=== PATIENT | female | born 1980 | race Caucasian/White ===

== ENCOUNTER 2018-05-16 07:04 | Inpatient (IN) | payer BC ==
[2018-05-16] MEDS ORDERED: Ondansetron 4 MG Tab.DIS PO PRN (07:26)
[2018-05-16] MEDS ORDERED: Sodium Chloride 0.9% 10 ML Syringe FLUSH PRN (07:26)
[2018-05-16] MEDS ORDERED: Ondansetron 4 MG/2 ML SDV IVPUSH PRN ×2 (07:26→14:53)
[2018-05-16] MEDS ORDERED: Acetaminophen 325 MG Tab PO PRN (07:26)
[2018-05-16] MEDS ORDERED: fentaNYL 100 MCG/2 ML SDV IVPUSH PRN (07:26)
[2018-05-16] MEDS ORDERED: Oxytocin/Lactated Ringers 10 UNIT/1,000 ML BAG IV SCH ×2 (07:30→08:00)
--- NOTE | 2018-05-16 08:13 | PCM.LDHP ---
L&D History of Present Illness - General Date of Service: 05/16/18 Admit Problem/Dx: Patient Status Order with Admit Dx/Problem 05/16/18 07:33 Patient Status [ADT] Routine Admission Diagnosis/Problem Admission Diagnosis/Problem Source of Information: Patient History Limitations: Reports: No Limitations - History of Present Illness Introduction:: 37 yo female at 40 weeks gestation with EDC 05/16/18. We have been following her closely due to some elevated bp readings and intermittent protein in the urine and history of severe preeclampsia. Her home bp readings have been 130's over 80's lately. BPP was done on 05/06/18 and scored 8/8 with EFW 7 lb 3 oz. NST on 05/10/18 was reactive. She is blood type A positive, rubella non immune, RPR NR, HBsAg neg, HIV neg. Diabetes screen negative, GBS negative. She has had some GERD and has been taking pantoprazole. She had her Tdap shot on 03/16/18. - Related Data Allergies/Adverse Reactions: Allergies Allergy/AdvReac Type Severity Reaction Status Date / Time No Known Allergies Allergy Verified 05/16/18 08:08 Home Medications: Home Meds Pantoprazole [ProTONIX] 40 mg PO DAILY 05/16/18 [History] Vits #93/Iron Fum/FA [ Formula Tablet] 1 tab PO DAILY 05/16/18 [History] Past Medical History HEENT History: Reports: None Cardiovascular History: Reports: Hypertension Respiratory History: Reports: None Gastrointestinal History: Reports: None Genitourinary History: Reports: None : 3 Para: 2 Other OB/BYN History: Severe preeclampsia with last , induced due to preeclampsia with first also Musculoskeletal History: Reports: None Neurological History: Reports: None Psychiatric History: Reports: None Endocrine/Metabolic History: Reports: None Hematologic History: Reports: None Social & Family History - Family History Family Medical History: Noncontributory - Tobacco Use Smoking Status *Q: Former Smoker Tobacco Use Within Last Twelve Months: Cigarettes (5-7 cigs a day prior to ) Used Tobacco, but Quit: Yes - Alcohol Use Alcohol Use History: No - Recreational Drug Use Recreational Drug Use: No Drug Use in Last 12 Months: No - Living Situation & Occupation Living situation: Reports: H&P Review of Systems - Review of Systems: Review Of Systems: See Below General: Reports: No Symptoms HEENT: Reports: No Symptoms Pulmonary: Reports: No Symptoms Cardiovascular: Reports: Edema Gastrointestinal: Reports: Nausea Genitourinary: Reports: No Symptoms Musculoskeletal: Reports: Back Pain Skin: Reports: No Symptoms Psychiatric: Reports: No Symptoms Neurological: Reports: No Symptoms Hematologic/Lymphatic: Reports: No Symptoms Immunologic: Reports: No Symptoms L&D Exam - Exam Exam: See Below - OB Specific Contraction Frequency (min): occasional contraction noted on monitor Movement: Active Heart Tones: Present Heart Tones per Min: 130 Heart Rate (FHR) Variability: Moderate (6-25 bmp) Presentation: Vertex Estimated Weight: 7 lb 3 oz - Charles Score Charles Score Cervix Position: Posterior Charles Score Consistency: Soft Charles Score Effacement: 31-50% Charles Score Dilation: 3-4 cm Charles Score 's Station: -3 Charles Score Total: 5 - Exam General: Alert, Oriented HEENT: Conjunctiva Clear, Mucosa Moist & [place] Neck: Supple, Trachea Midline Lungs: Normal Respiratory Effort Cardiovascular: Regular Rate, Regular Rhythm GI/Abdominal Exam: Soft Rectal Exam: Deferred Genitourinary: Normal external exam Back Exam: Normal Inspection Extremities: Normal Inspection, No Pedal Edema Skin: Warm, Dry, Intact Psychiatric: Alert, Normal Affect, Normal Mood - Problem List (1) Elevated BP without diagnosis of hypertension SNOMED Code(s): 202445487 ICD Code: R03.0 - ELEVATED BLOOD-PRESSURE READING, W/O DIAGNOSIS OF HTN Status: Acute Current Visit: Yes (2) History of severe pre-eclampsia SNOMED Code(s): 816494767 ICD Code: Z87.59 - PERSONAL HISTORY OF COMP OF PREG, CHLDBRTH AND THE PUERP Status: Acute Current Visit: Yes (3) Term SNOMED Code(s): 85092381 ICD Code: Z34.80 - ENCOUNTER FOR SUPRVSN OF NORMAL , UNSP TRIMESTER Status: Acute Current Visit: Yes Problem List Initiated/Reviewed/Updated: Yes Orders Last 24hrs: Active Orders 24 hr Category Date Time Status Patient Status [ADT] Routine ADT 05/16/18 07:33 Ordered Activity as Tolerated [RC] PFP Care 05/16/18 07:33 Ordered Communication Order [RC] ASDIRECTED Care 05/16/18 07:33 Ordered Heart Tones [RC] ASDIRECTED Care 05/16/18 07:33 Ordered Notify Provider [RC] PFP Care 05/16/18 07:33 Ordered Notify Provider [RC] PRN Care 05/16/18 07:33 Ordered Peripheral IV Care [RC] . DIRECTED Care 05/16/18 07:33 Ordered Vital Signs [RC] PER UNIT ROUTINE Care 05/16/18 07:33 Ordered Regular Diet [DIET] Diet 05/16/18 Lunch Ordered CBC W/O DIFF,HEMOGRAM [HEME] Stat Lab 05/16/18 07:26 Ordered RAPID PLASMA REAGIN,RPR [CHEM] Stat Lab 05/16/18 07:26 Ordered TYPE AND SCREEN [BBK] Stat Lab 05/16/18 07:26 Ordered UA W/O MICROSCOPIC [URIN] Stat Lab 05/16/18 07:26 Ordered Acetaminophen [Tylenol] Med 05/16/18 07:26 Ordered 650 mg PO Q4H PRN Lactated Ringers [Ringers, Lactated] 1,000 ml Med 05/16/18 07:30 Ordered IV ASDIRECTED Lidocaine 1% [Xylocaine 1%] Med 05/16/18 07:26 Once 10 ml INJECT ONETIME ONE Ondansetron [Zofran ODT] Med 05/16/18 07:26 Ordered 4 mg PO Q4H PRN Ondansetron [Zofran] Med 05/16/18 07:26 Ordered 4 mg IVPUSH Q4H PRN Oxytocin/Lactated Ringers [Pitocin in LR 10 Units/1,000 Med 05/16/18 07:30 Ordered ML] 10 unit in 1,000 ml IV .CONTINUOUS Oxytocin/Lactated Ringers [Pitocin in LR 10 Units/1,000 Med 05/16/18 08:00 Ordered ML] 10 unit in 1,000 ml IV TITRATE Pantoprazole [ProTONIX] Med 05/16/18 09:00 Ordered 40 mg PO DAILY Sodium Chloride 0.9% [Saline Flush] Med 05/16/18 07:26 Ordered 10 ml FLUSH ASDIRECTED PRN fentaNYL [Sublimaze] Med 05/16/18 07:26 Ordered 50 mcg IVPUSH Q1H PRN Electronic Heart Tones Ext w TOCO [WOMSER] Oth 05/16/18 07:33 Ordered Routine Electronic Heart Tones Internal [WOMSER] Per Unit Oth 05/16/18 07:33 Ordered Routine Peripheral IV Insertion Adult [OM.PC] Routine Oth 05/16/18 07:33 Ordered Resuscitation Status Routine Resus Stat 05/16/18 07:26 Ordered Medication Orders Acetaminophen (Tylenol) 650 mg PO Q4H PRN PRN Reason: Pain (Mild 1-3) and fever Fentanyl (Sublimaze) 50 mcg IVPUSH Q1H PRN PRN Reason: Pain (moderate 4-6) Lactated Ringer's (Ringers, Lactated) 1,000 mls @ 100 mls/hr IV ASDIRECTED DYAN Oxytocin/Lactated Ringer's (Pitocin In Lr 10 Units/1,000 Ml) 10 unit in 1,000 mls @ 500 mls/hr IV .CONTINUOUS DYAN Oxytocin/Lactated Ringer's (Pitocin In Lr 10 Units/1,000 Ml) 10 unit in 1,000 mls @ 12 mls/hr IV TITRATE DYAN; Protocol Lidocaine HCl (Xylocaine 1%) 10 ml INJECT ONETIME ONE Stop: 05/16/18 07:27 Ondansetron HCl (Zofran Odt) 4 mg PO Q4H PRN PRN Reason: Nausea/Vomiting Ondansetron HCl (Zofran) 4 mg IVPUSH Q4H PRN PRN Reason: Nausea/Vomiting Pantoprazole Sodium (Protonix) 40 mg PO DAILY DYAN Sodium Chloride (Saline Flush) 10 ml FLUSH ASDIRECTED PRN PRN Reason: Keep Vein Open
[2018-05-16] MEDS ORDERED: Pantoprazole 40 MG Tab.CR PO SCH (09:00)
[2018-05-16] MEDS: Lactated Ringers 1,000 ML IV SCH ×3 (09:45→16:15)
--- NOTE | 2018-05-16 10:32 | PCM.PREANE ---
Preanesthetic Assessment - Procedure Proposed Procedure: ANDREI - Anesthesia/Transfusion/Family Hx Anesthesia History: Prior Anesthesia Without Reaction (had 2 epidurals previously that she said did not work.) Family History of Anesthesia Reaction: No Transfusion History: No Prior Transfusion(s) - Review of Systems General: No Symptoms Pulmonary: No Symptoms Cardiovascular: No Symptoms Gastrointestinal: Other (GERD ) Neurological: No Symptoms Other: Reports: None - Physical Assessment NPO Status Date: 05/16/18 NPO Status Time: 08:00 Pulse: 93 Blood Pressure: 124/80 Vital Signs: Last Vital Signs Temp Pulse 93 05/16/18 08:30 Resp BP 124/80 05/16/18 07:30 Pulse Ox Height: 1.6 m Weight: 103.873 kg ASA Class: 2 Mental Status: Alert & Oriented x3 Airway Class: Mallampati = 2 Dentition: Reports: Normal Dentition Thyro-Mental Finger Breadths: 3 Mouth Opening Finger Breadths: 3 ROM/Head Extension: Full Lungs: Clear to Auscultation, Normal Respiratory Effort Cardiovascular: Regular Rate, Regular Rhythm - Lab Values: Laboratory Last Values WBC 8.92 K/mm3 (3.98-10.04) 05/16/18 08:05 RBC 4.43 M/mm3 (3.98-5.22) 05/16/18 08:05 Hgb 11.9 gm/L (11.2-15.7) 05/16/18 08:05 Hct 36.4 % (34.1-44.9) 05/16/18 08:05 MCV 82.2 fl (79.4-94.8) 05/16/18 08:05 MCH 26.9 pg (25.6-32.2) 05/16/18 08:05 MCHC 32.7 g/dl (32.2-35.5) 05/16/18 08:05 RDW Std Deviation 42.9 fL (36.4-46.3) 05/16/18 08:05 Plt Count 166 K/mm3 (182-369) L 05/16/18 08:05 MPV 12.4 fl (9.4-12.3) H 05/16/18 08:05 Urine Color Yellow (Yellow) 05/16/18 08:30 Urine Appearance Clear (Clear) 05/16/18 08:30 Urine pH 6.0 (5.0-8.0) 05/16/18 08:30 Ur Specific [place] > or = 1.030 (1.005-1.030) 05/16/18 08:30 Urine Protein Trace (Negative) H 05/16/18 08:30 Urine Glucose (UA) Trace (Negative) H 05/16/18 08:30 Urine Ketones Negative (Negative) 05/16/18 08:30 Urine Occult Blood Negative (Negative) 05/16/18 08:30 Urine Nitrite Negative (Negative) 05/16/18 08:30 Urine Bilirubin Negative (Negative) 05/16/18 08:30 Urine Urobilinogen 0.2 (0.2-1.0) 05/16/18 08:30 Ur Leukocyte Esterase Negative (Negative) 05/16/18 08:30 Blood Type A POSITIVE 05/16/18 08:05 Gel Antibody Screen Negative 05/16/18 08:05 - Allergies Allergies/Adverse Reactions: Allergies Allergy/AdvReac Type Severity Reaction Status Date / Time No Known Allergies Allergy Verified 05/16/18 08:08 - Blood Blood Available: No - Anesthesia Plan Pre-Op Medication Ordered: None - Acknowledgements Anesthesia Type Planned: Epidural Pt an Appropriate Candidate for the Planned Anesthesia: Yes Alternatives and Risks of Anesthesia Discussed w Pt/Guardian: Yes Pt/Guardian Understands and Agrees with Anesthesia Plan: Yes PreAnesthesia Questionnaire HEENT History: Reports: None Cardiovascular History: Reports: Hypertension Respiratory History: Reports: None Other Respiratory History: positive skin test, negative chest xray Gastrointestinal History: Reports: None Genitourinary History: Reports: None AGILE TEST LEAD History: Reports: Other OB/BYN History: Severe preeclampsia with last , induced due to preeclampsia with first also Musculoskeletal History: Reports: None Neurological History: Reports: None Psychiatric History: Reports: None Endocrine/Metabolic History: Reports: None Hematologic History: Reports: None - Past Surgical History Cardiovascular Surgical History: Reports: None Respiratory Surgical History: Reports: None - SUBSTANCE USE Smoking Status *Q: Former Smoker Tobacco Use Within Last Twelve Months: Cigarettes (5-7 cigs a day prior to ) Recreational Drug Use History: No - HOME MEDS Home Medications: Home Meds Pantoprazole [ProTONIX] 40 mg PO DAILY 05/16/18 [History] Vits #93/Iron Fum/FA [ Formula Tablet] 1 tab PO DAILY 05/16/18 [History] - CURRENT (IN HOUSE) MEDS Current Meds: Current Medications Acetaminophen (Tylenol) 650 mg PO Q4H PRN PRN Reason: Pain (Mild 1-3) and fever Fentanyl (Sublimaze) 50 mcg IVPUSH Q1H PRN PRN Reason: Pain (moderate 4-6) Lactated Ringer's (Ringers, Lactated) 1,000 mls @ 100 mls/hr IV ASDIRECTED DYAN Last Admin: 05/16/18 09:45 Dose: 100 mls/hr Oxytocin/Lactated Ringer's (Pitocin In Lr 10 Units/1,000 Ml) 10 unit in 1,000 mls @ 500 mls/hr IV .CONTINUOUS DYAN Oxytocin/Lactated Ringer's (Pitocin In Lr 10 Units/1,000 Ml) 10 unit in 1,000 mls @ 12 mls/hr IV TITRATE DYAN; Protocol Last Admin: 05/16/18 09:45 Dose: 2 munits/min, 12 mls/hr Lidocaine HCl (Xylocaine 1%) 10 ml INJECT ONETIME ONE Stop: 05/16/18 12:01 Ondansetron HCl (Zofran Odt) 4 mg PO Q4H PRN PRN Reason: Nausea/Vomiting Ondansetron HCl (Zofran) 4 mg IVPUSH Q4H PRN PRN Reason: Nausea/Vomiting Pantoprazole Sodium (Protonix) 40 mg PO DAILY DYAN Sodium Chloride (Saline Flush) 10 ml FLUSH ASDIRECTED PRN PRN Reason: Keep Vein Open
[2018-05-16] MEDS ORDERED: Lidocaine 1% 50 ML MDV INJECT ONE (12:00)
[2018-05-16] MEDS ORDERED: Meperidine PF 50 MG/ML Syringe IVPUSH PRN (14:53)
[2018-05-16] MEDS ORDERED: ePHEDrine 50 MG/ML SDV IVPUSH PRN (14:53)
[2018-05-16] MEDS ORDERED: diphenhydrAMINE 50 MG/ML SDV IVPUSH PRN (14:53)
[2018-05-16] MEDS ORDERED: fentaNYL 100 MCG/2 ML SDV EPIDUR PRN (14:53)
[2018-05-16] MEDS ORDERED: Bupivacaine/fentaNYL/NS 100 ML Bag EPIDUR SCH (15:00)
[2018-05-16] MEDS ORDERED: Witch Hazel Medicated Pads 100/Jar TOP PRN (18:58)
[2018-05-16] MEDS ORDERED: Aluminum Hydroxide/Magnesium Hydroxide/Simethicone Susp 30 ML Cup PO PRN (18:58)
[2018-05-16] MEDS ORDERED: Measles, Mumps & Rubella Vaccine 0.5 ML SDV SUBCUT ONE (18:58)
[2018-05-16] MEDS ORDERED: Simethicone 80 MG Tab.Chew PO PRN (18:58)
--- NOTE | 2018-05-16 19:26 | PCM.DEL ---
L & D Note - General Info Date of Service: 05/16/18 Mother's Due Date: 05/16/18 - Delivery Note Labor: Induced by Oxytocin Delivery Outcome: Livebirth Delivery Method: Spontaneous Vaginal Delivery-Single Infant Delivery Mode: Spontaneous Presentation: Right Occiput Anterior (MARTHA) Nuchal Cord: None Prep: Povidone-Iodine (Betadine Anesthesia Type: Epidural Amniotic Fluid Description: Clear Episiotomy Type: None Laceration: None Placenta: Intact, Spontaneous Cord: 3 Vessels Estimated Blood Loss: 100 Resuscitation Needed: No : Bulb Syringe, Stimulated, [place] Used Provider: Monse Jalloh Score 1 min: 9 Score 5 min: 9 Second Stage Interventions: Reports: Pushing Effectively, Pushing, Feet in Foot Rests Delivery Comments (Free Text/Narrative):: This 37 year old A3 presents at 40 weeks gestation by ultrasound with an EDC of May 16, 2018. She was admitted for induction of labor due to term and elevated blood pressures with past history of preeclampsia. She has had some elevated blood pressures during this and intermittent protein in the urine. We've been following with twice weekly visits and nonstress tests. Her last biophysical profile scored 8 out of 8 and had an NST a week ago that was reactive. She has been resting at home and her home blood pressures have been mostly in the 130/80 range. She's had intermittent peripheral edema but denied any other symptoms of preeclampsia. Her membranes were intact. course was complicated by elevated blood pressure. lab data includes blood type A positive with a negative Ab screen, Rubella Non-Immune, RPR NR, Hep BsAg neg, HIV NR and Group B strep culture negative. She presented at 07 15 hours with only very occasional contractions. On admission, her cervix was 3 cm. FHR was reactive and reassuring. At 1420 , artificial rupture of membranes was performed with a return of large amounts of clear fluid. At that time, her cervix was 4 cm and the vertex was at a -2 station. She received an epidural for analgesia at 1500 hours and had good relief. FHR was reassuring throughout the 1st stage of labor. She progressed to complete by 1830 hours and was allowed to push. She pushed very well and FHR remained reassuring. The head was delivered spontaneously in the right occiput anterior position over intact perineum. Mouth and nose were suctioned with the bulb suction on the perineum. There was no nuchal cord. The anterior shoulder delivered easily and the posterior shoulder followed. The remainder of the was easily delivered and the mouth and nose were again suctioned. Time of delivery was 1838. It was a baby boy and noted to spontaneously cry and was moving all four extremities. Baby was placed skin to skin on mother's abdomen. The cord was clamped and cut after it stopped pulsating. The cord was noted to have 3 vessels. Cord blood was obtained. Birthweight was 3380 grams and the total duration of the second stage of labor was 8 minutes. Pitocin IV bolus with 10 units in 1000 ml was started after delivery of the baby. Gentle traction was placed on the cord and the placenta delivered spontaneously at 184. Total duration of the third stage of labor was 5 minutes. Placenta was intact. Uterine tone was firm after delivery of the placenta and uterine massage. There was no perineal tear. Mom and baby were left in stable condition and will be admitted to unit for routine care. Baby was able to latch and nurse at 1915. Induction Criteria - Charles Score Charles Score Dilation: 3-4 cm Charles Score Effacement: 40-50% Charles Score 's Station: -2 Charles Score Consistency: Soft Charles Score Cervix Position: Posterior Charles Score Total: 6 Charles Score Presenting Part: Reports: Cephalic - Induction Gestational Age >/= 39 wks: Yes Estimated Pelvis: Reports: Adequate Reassuring Monitoring Strip: Yes Absence of Tachy Systole: Yes - Augmentation Estimated Pelvis: Reports: Adequate Weight Estimated:: Reports: AGA Reassuring Monitoring Strip: Yes Absence of Tachy Systole: Yes - General Info Date of Service: 05/16/18 Admission Dx/Problem (Free Text): Patient Status Order with Admit Dx/Problem 05/16/18 07:33 Patient Status [ADT] Routine Admission Diagnosis/Problem Admission Diagnosis/Problem Functional Status: Reports: Pain Controlled - Review of Systems General: Reports: No Symptoms HEENT: Reports: No Symptoms Pulmonary: Reports: No Symptoms Cardiovascular: Reports: No Symptoms Gastrointestinal: Reports: No Symptoms Genitourinary: Reports: No Symptoms Musculoskeletal: Reports: No Symptoms Skin: Reports: No Symptoms Neurological: Reports: No Symptoms Psychiatric: Reports: No Symptoms - Patient Data Vitals - Most Recent: Last Vital Signs Temp 36.0 C 05/16/18 07:33 Pulse 84 05/16/18 19:00 Resp 20 05/16/18 07:33 BP 108/55 L 05/16/18 19:00 Pulse Ox Weight - Most Recent: 103.873 kg I&O - Last 24 Hours: Intake & Output 05/16/18 05/16/18 05/16/18 06:59 14:59 22:59 Intake Total 440 2500 Balance 440 2500 Lab Results Last 24 Hours: Laboratory Results - last 24 hr 05/16/18 05/16/18 05/16/18 Range/Units 08:05 08:05 08:05 WBC 8.92 (3.98-10.04) K/mm3 RBC 4.43 (3.98-5.22) M/mm3 Hgb 11.9 (11.2-15.7) gm/L Hct 36.4 (34.1-44.9) % MCV 82.2 (79.4-94.8) fl MCH 26.9 (25.6-32.2) pg MCHC 32.7 (32.2-35.5) g/dl RDW Std Deviation 42.9 (36.4-46.3) fL Plt Count 166 L (182-369) K/mm3 MPV 12.4 H (9.4-12.3) fl Urine Color (Yellow) Urine Appearance (Clear) Urine pH (5.0-8.0) Ur Specific [place] (1.005-1.030) Urine Protein (Negative) Urine Glucose (UA) (Negative) Urine Ketones (Negative) Urine Occult Blood (Negative) Urine Nitrite (Negative) Urine Bilirubin (Negative) Urine Urobilinogen (0.2-1.0) Ur Leukocyte Esterase (Negative) RPR Non-reactive (NONREACTIVE) Blood Type A POSITIVE Gel Antibody Screen Negative 05/16/18 Range/Units 08:30 WBC (3.98-10.04) K/mm3 RBC (3.98-5.22) M/mm3 Hgb (11.2-15.7) gm/L Hct (34.1-44.9) % MCV (79.4-94.8) fl MCH (25.6-32.2) pg MCHC (32.2-35.5) g/dl RDW Std Deviation (36.4-46.3) fL Plt Count (182-369) K/mm3 MPV (9.4-12.3) fl Urine Color Yellow (Yellow) Urine Appearance Clear (Clear) Urine pH 6.0 (5.0-8.0) Ur Specific [place] > or = 1.030 (1.005-1.030) Urine Protein Trace H (Negative) Urine Glucose (UA) Trace H (Negative) Urine Ketones Negative (Negative) Urine Occult Blood Negative (Negative) Urine Nitrite Negative (Negative) Urine Bilirubin Negative (Negative) Urine Urobilinogen 0.2 (0.2-1.0) Ur Leukocyte Esterase Negative (Negative) RPR (NONREACTIVE) Blood Type Gel Antibody Screen Med Orders - Current: Current Medications Acetaminophen (Tylenol) 650 mg PO Q4H PRN PRN Reason: Pain (Mild 1-3) and fever Al Hydroxide/Mg Hydroxide (Mag-Al Plus) 30 ml PO Q8H PRN PRN Reason: Heartburn Diphenhydramine HCl (Benadryl) 25 mg IVPUSH Q6H PRN PRN Reason: Pruritis Ephedrine Sulfate (Ephedrine Sulfate) 5 mg IVPUSH ASDIRECTED PRN PRN Reason: Hypotension Fentanyl (Sublimaze) 50 mcg IVPUSH Q1H PRN PRN Reason: Pain (moderate 4-6) Fentanyl (Sublimaze) 100 mcg EPIDUR Q3H PRN PRN Reason: Pain Last Admin: 05/16/18 15:12 Dose: 100 mcg Fentanyl/Bupivacaine HCl (Fentanyl/Bupivacaine/Ns 2 Mcg-0.125% 100 Ml) 100 ml EPIDUR ASDIRECTED DYAN Last Admin: 05/16/18 15:11 Dose: 100 ml Lactated Ringer's (Ringers, Lactated) 1,000 mls @ 100 mls/hr IV ASDIRECTED DYAN Last Admin: 05/16/18 16:15 Dose: 100 mls/hr Oxytocin/Lactated Ringer's (Pitocin In Lr 10 Units/1,000 Ml) 10 unit in 1,000 mls @ 500 mls/hr IV .CONTINUOUS DYAN Oxytocin/Lactated Ringer's (Pitocin In Lr 10 Units/1,000 Ml) 10 unit in 1,000 mls @ 12 mls/hr IV TITRATE DYAN; Protocol Last Titration: 05/16/18 17:05 Dose: 20 munits/min, 120 mls/hr Ibuprofen (Motrin) 600 mg PO Q6H PRN PRN Reason: Mild pain or fever Meperidine HCl (Demerol) 12.5 mg IVPUSH ONETIME PRN PRN Reason: Shivering Ondansetron HCl (Zofran Odt) 4 mg PO Q4H PRN PRN Reason: Nausea/Vomiting Ondansetron HCl (Zofran) 4 mg IVPUSH Q4H PRN PRN Reason: Nausea/Vomiting Ondansetron HCl (Zofran) 4 mg IVPUSH ONETIME PRN PRN Reason: Nausea/Vomiting Pantoprazole Sodium (Protonix) 40 mg PO DAILY DYAN Last Admin: 05/16/18 12:04 Dose: Not Given Senna (Senna) 8.6 mg PO BEDTIME DYAN Simethicone (Simethicone) 80 mg PO Q4H PRN PRN Reason: Gas Sodium Chloride (Saline Flush) 10 ml FLUSH ASDIRECTED PRN PRN Reason: Keep Vein Open Witch Jovita (Tucks) 1 pad TOP ASDIRECTED PRN PRN Reason: Hemorrhoid pain Discontinued Medications Lidocaine HCl (Xylocaine 1%) 10 ml INJECT ONETIME ONE Stop: 05/16/18 12:01 Measles/Mumps/Rubella Vaccine Live (M-M-R Ii Vaccine) 0.5 ml SUBCUT .ONCE ONE Stop: 05/16/18 18:59 - Exam General: Alert, Oriented, No Acute Distress HEENT: EOMI, Mucous Membr. Moist/[place] Neck: Supple Lungs: Normal Respiratory Effort Cardiovascular: Regular Rate GI/Abdominal Exam: Normal Bowel Sounds (Female) Exam: Normal External Exam, Other (Fundus firm at umbilicus) Back Exam: Normal Inspection Extremities: Normal Inspection Skin: Warm, Dry Neurological: No New Focal Deficit Psy/Mental Status: Alert, Normal Affect, Normal Mood - Problem List & Annotations (1) Elevated BP without diagnosis of hypertension SNOMED Code(s): 570990572 Code(s): R03.0 - ELEVATED BLOOD-PRESSURE READING, W/O DIAGNOSIS OF HTN Status: Acute Current Visit: Yes (2) History of severe pre-eclampsia SNOMED Code(s): 325660483 Code(s): Z87.59 - PERSONAL HISTORY OF COMP OF PREG, CHLDBRTH AND THE PUERP Status: Acute Current Visit: Yes (3) Term SNOMED Code(s): 06361447 Code(s): Z34.80 - ENCOUNTER FOR SUPRVSN OF NORMAL , UNSP TRIMESTER Status: Acute Current Visit: Yes (4) Spontaneous vaginal delivery SNOMED Code(s): 93502561 Code(s): O80 - ENCOUNTER FOR FULL-TERM UNCOMPLICATED DELIVERY Status: Acute Current Visit: Yes (5) () SNOMED Code(s): 640405397 Code(s): Z78.9 - OTHER SPECIFIED HEALTH STATUS Status: Acute Current Visit: Yes - Problem List Review Problem List Initiated/Reviewed/Updated: Yes - My Orders Last 24 Hours: My Active Orders 05/16/18 07:26 Acetaminophen [Tylenol] 650 mg PO Q4H PRN Ondansetron [Zofran ODT] 4 mg PO Q4H PRN Ondansetron [Zofran] 4 mg IVPUSH Q4H PRN Sodium Chloride 0.9% [Saline Flush] 10 ml FLUSH ASDIRECTED PRN fentaNYL [Sublimaze] 50 mcg IVPUSH Q1H PRN Resuscitation Status Routine 05/16/18 07:30 Lactated Ringers [Ringers, Lactated] 1,000 ml IV ASDIRECTED Oxytocin/Lactated Ringers [Pitocin in LR 10 Units/1,000 ML] 10 unit in 1,000 ml IV .CONTINUOUS 05/16/18 07:33 Activity as Tolerated [RC] PFP Communication Order [RC] ASDIRECTED Heart Tones [RC] ASDIRECTED Notify Provider [RC] PFP Notify Provider [RC] PRN Peripheral IV Care [RC] Q4HR Vital Signs [RC] 03,09,15,21 Electronic Heart Tones Ext w TOCO [WOMSER] Routine Electronic Heart Tones Internal [WOMSER] Per Unit Routine Peripheral IV Insertion Adult [OM.PC] Routine 05/16/18 08:00 Oxytocin/Lactated Ringers [Pitocin in LR 10 Units/1,000 ML] 10 unit in 1,000 ml IV TITRATE 05/16/18 08:30 UA W/O MICROSCOPIC [URIN] Stat 05/16/18 09:00 Pantoprazole [ProTONIX] 40 mg PO DAILY 05/16/18 18:57 Patient Status Manage Transfer [TRANSFER] Routine 05/16/18 18:58 May Shower [RC] ASDIRECTED Up ad Rosemary [RC] ASDIRECTED Alum Hydrox/Mag Hydrox/Simeth [Mag-Al Plus] 30 ml PO Q8H PRN Ibuprofen [Motrin] 600 mg PO Q6H PRN Simethicone 80 mg PO Q4H PRN Witch Jovita [Tucks] 1 pad TOP ASDIRECTED PRN 05/16/18 18:59 Patient Status [ADT] Routine Activity as Tolerated [RC] PER UNIT ROUTINE Vital Signs [RC] ASDIRECTED Assess Lochia [WOMSER] Per Unit Routine Assess Uterine Involution [WOMSER] Per Unit Routine Breast Pump [WOMSER] Per Unit Routine Medication Administration Instruction [OM.PC] Routine Perineal Care [OM.PC] Per Unit Routine Sitz Bath [OM.PC] Per Unit Routine 05/16/18 19:00 Heat Therapy [OM.PC] PRN Peripheral IV Discontinue [OM.PC] Routine 05/16/18 19:08 Notify Provider Vital Signs [RC] ASDIRECTED 05/16/18 21:00 Sennosides [Senna] 8.6 mg PO BEDTIME 05/16/18 Lunch Regular Diet [DIET] 05/17/18 19:00 Heat Therapy [OM.PC] PRN - Assessment Assessment:: 37 year old G6A3 now P3 female admitted for induction of labor due to term and some elevated bp. Spontaneous vaginal delivery with no perineal tear. She plans to breastfeed and baby latched in the delivery room and nursed.
[2018-05-16] MEDS ORDERED: diphenhydrAMINE 50 MG/ML SDV IVPUSH ONE (20:06)
[2018-05-16] MEDS ORDERED: Sennosides 8.6 MG Tab PO SCH (21:00)
[2018-05-16] MEDS ORDERED: Bupivacaine 0.25% 10 ML SDV ONE (22:00)
[2018-05-16] MEDS: Ibuprofen 600 MG Tab PO PRN (23:02)
[2018-05-17] MEDS: Ibuprofen 600 MG Tab PO PRN ×3 (04:25→17:05)
[2018-05-17] MEDS: Acetaminophen 325 MG Tab PO PRN ×2 (08:24→14:50)
--- NOTE | 2018-05-17 19:11 | PCM.DCSUM1 ---
Discharge Summary - Hospital Course Free Text/Narrative:: This 37 year old A3 presents at 40 weeks gestation by ultrasound with an EDC of May 16, 2018. She was admitted for induction of labor due to term and elevated blood pressures with past history of preeclampsia. She has had some elevated blood pressures during this and intermittent protein in the urine. We've been following with twice weekly visits and nonstress tests. Her last biophysical profile scored 8 out of 8 and had an NST a week ago that was reactive. She has been resting at home and her home blood pressures have been mostly in the 130/80 range. She's had intermittent peripheral edema but denied any other symptoms of preeclampsia. Her membranes were intact. course was complicated by elevated blood pressure. lab data includes blood type A positive with a negative Ab screen, Rubella Non-Immune, RPR NR, Hep BsAg neg, HIV NR and Group B strep culture negative. She presented at 07 15 hours with only very occasional contractions. On admission, her cervix was 3 cm. FHR was reactive and reassuring. At 1420 , artificial rupture of membranes was performed with a return of large amounts of clear fluid. At that time, her cervix was 4 cm and the vertex was at a -2 station. She received an epidural for analgesia at 1500 hours and had good relief. FHR was reassuring throughout the 1st stage of labor. She progressed to complete by 1830 hours and was allowed to push. She pushed very well and FHR remained reassuring. The head was delivered spontaneously in the right occiput anterior position over intact perineum. Mouth and nose were suctioned with the bulb suction on the perineum. There was no nuchal cord. The anterior shoulder delivered easily and the posterior shoulder followed. The remainder of the infant was easily delivered and the mouth and nose were again suctioned. Time of delivery was 1838. It was a baby boy and noted to spontaneously cry and was moving all four extremities. Baby was placed skin to skin on mother's abdomen. The cord was clamped and cut after it stopped pulsating. The cord was noted to have 3 vessels. Cord blood was obtained. Birthweight was 3380 grams and the total duration of the second stage of labor was 8 minutes. Pitocin IV bolus with 10 units in 1000 ml was started after delivery of the baby. Gentle traction was placed on the cord and the placenta delivered spontaneously at 1843. Total duration of the third stage of labor was 5 minutes. Placenta was intact. Uterine tone was firm after delivery of the placenta and uterine massage. There was no perineal tear. Mom and baby were left in stable condition and will be admitted to unit for routine care. Baby was able to latch and nurse at 1915. Course in hospital: Patient did well, using tylenol and ibuprofen for pain relief. Most of her pain was uterine cramping with . Flow has been moderate, no clots. She has been well and no complaints of nipple pain. The left nipple is a bit bruised, but she thinks that is more from the early sessions. Mood is stable and bonding well with baby. Offered MMR booster since her rubella test was non-immune. She declined at this time. She has quit smoking and plans to stay quit. She is not sure what she wants to do about control. Diagnosis: Stroke: No Modified [place] Scale: No Symptoms at All Modified [place] Scale Score: 0 - Discharge Data Discharge Date: 05/17/18 Discharge Disposition: Home, Self-Care 01 Condition: Good - Discharge Diagnosis/Problem(s) (1) Elevated BP without diagnosis of hypertension SNOMED Code(s): 041956446 ICD Code: R03.0 - ELEVATED BLOOD-PRESSURE READING, W/O DIAGNOSIS OF HTN Status: Acute Current Visit: Yes (2) History of severe pre-eclampsia SNOMED Code(s): 775154149 ICD Code: Z87.59 - PERSONAL HISTORY OF COMP OF PREG, CHLDBRTH AND THE PUERP Status: Acute Current Visit: Yes (3) Term SNOMED Code(s): 79382627 ICD Code: Z34.80 - ENCOUNTER FOR SUPRVSN OF NORMAL , UNSP TRIMESTER Status: Acute Current Visit: Yes (4) Spontaneous vaginal delivery SNOMED Code(s): 77106002 ICD Code: O80 - ENCOUNTER FOR FULL-TERM UNCOMPLICATED DELIVERY Status: Acute Current Visit: Yes (5) () SNOMED Code(s): 906147880 ICD Code: Z78.9 - OTHER SPECIFIED HEALTH STATUS Status: Acute Current Visit: Yes - Patient Instructions Diet: Regular Diet as Tolerated Activity: As Tolerated, No Lifting Over 20 Pounds Driving: Do Not Drive Showering/Bathing: May Shower Notify Provider of: Fever, Increased Pain, Swelling and Redness, Drainage, Nausea and/or Vomiting - Discharge Plan Home Medications: Home Meds Vits #93/Iron Fum/FA [ Formula Tablet] 1 tab PO DAILY 05/16/18 [History] Acetaminophen [Tylenol] 650 mg PO Q4H PRN tablet 05/17/18 [Rx] Ibuprofen [Motrin] 600 mg PO Q6H PRN tablet 05/17/18 [Rx] Sunny Hussein [Tucks] 1 pad TOP ASDIRECTED PRN pad 05/17/18 [Rx] Patient Handouts: and Inducing , Exclusive , Home Care Instructions for Mom, Vaginal Delivery, Care After, Tips for a Good Latch Referrals: Monse Jalloh MD [Primary Care Provider] - - Discharge Summary/Plan Comment DC Time >30 min.: No - General Info Date of Service: 05/17/18 Admission Dx/Problem (Free Text: Patient Status Order with Admit Dx/Problem 05/16/18 07:33 Patient Status [ADT] Routine Admission Diagnosis/Problem Admission Diagnosis/Problem Functional Status: Reports: Pain Controlled, Tolerating Diet, Ambulating, Urinating - Review of Systems General: Reports: No Symptoms HEENT: Reports: No Symptoms Pulmonary: Reports: No Symptoms Cardiovascular: Reports: No Symptoms Gastrointestinal: Reports: No Symptoms Genitourinary: Reports: No Symptoms Musculoskeletal: Reports: No Symptoms Skin: Reports: No Symptoms Neurological: Reports: No Symptoms Psychiatric: Reports: No Symptoms - Patient Data Vitals - Most Recent: Last Vital Signs Temp 35.7 C 05/17/18 14:45 Pulse 75 05/17/18 14:45 Resp 18 05/17/18 14:45 BP 123/59 L 05/17/18 14:45 Pulse Ox 100 05/17/18 14:45 Weight - Most Recent: 103.873 kg I&O - Last 24 hours: Intake & Output 05/17/18 05/17/18 05/17/18 06:59 14:59 22:59 Intake Total 240 Balance 240 Med Orders - Current: Current Medications Acetaminophen (Tylenol) 650 mg PO Q4H PRN PRN Reason: Pain Last Admin: 05/17/18 14:50 Dose: 650 mg Al Hydroxide/Mg Hydroxide (Mag-Al Plus) 30 ml PO Q8H PRN PRN Reason: Heartburn Ibuprofen (Motrin) 600 mg PO Q6H PRN PRN Reason: Mild pain or fever Last Admin: 05/17/18 17:05 Dose: 600 mg Senna (Senna) 8.6 mg PO BEDTIME [facility] Last Admin: 05/16/18 23:46 Dose: Not Given Simethicone (Simethicone) 80 mg PO Q4H PRN PRN Reason: Gas Witch Jovita (Tucks) 1 pad TOP ASDIRECTED PRN PRN Reason: Hemorrhoid pain Last Admin: 05/16/18 20:09 Dose: 1 canister Discontinued Medications Acetaminophen (Tylenol) 650 mg PO Q4H PRN PRN Reason: Pain (Mild 1-3) and fever Bupivacaine HCl (Sensorcaine-Mpf 0.25%) 10 ml .ROUTE .STK-MED ONE Stop: 05/16/18 22:01 Diphenhydramine HCl (Benadryl) 25 mg IVPUSH Q6H PRN PRN Reason: Pruritis Diphenhydramine HCl (Benadryl) 25 mg IVPUSH ONETIME ONE Stop: 05/16/18 20:07 Last Admin: 05/16/18 20:51 Dose: 25 mg Ephedrine Sulfate (Ephedrine Sulfate) 5 mg IVPUSH ASDIRECTED PRN PRN Reason: Hypotension Fentanyl (Sublimaze) 50 mcg IVPUSH Q1H PRN PRN Reason: Pain (moderate 4-6) Fentanyl (Sublimaze) 100 mcg EPIDUR Q3H PRN PRN Reason: Pain Last Admin: 05/16/18 15:12 Dose: 100 mcg Fentanyl/Bupivacaine HCl (Fentanyl/Bupivacaine/Ns 2 Mcg-0.125% 100 Ml) 100 ml EPIDUR ASDIRECTED [facility] Last Admin: 05/16/18 15:11 Dose: 100 ml Lactated Ringer's (Ringers, Lactated) 1,000 mls @ 100 mls/hr IV ASDIRECTED [facility] Last Admin: 05/16/18 16:15 Dose: 100 mls/hr Oxytocin/Lactated Ringer's (Pitocin In Lr 10 Units/1,000 Ml) 10 unit in 1,000 mls @ 500 mls/hr IV .CONTINUOUS [facility] Oxytocin/Lactated Ringer's (Pitocin In Lr 10 Units/1,000 Ml) 10 unit in 1,000 mls @ 12 mls/hr IV TITRATE DYAN; Protocol Last Titration: 05/16/18 17:05 Dose: 20 munits/min, 120 mls/hr Lidocaine HCl (Xylocaine 1%) 10 ml INJECT ONETIME ONE Stop: 05/16/18 12:01 Last Admin: 05/17/18 00:16 Dose: Not Given Measles/Mumps/Rubella Vaccine Live (M-M-R Ii Vaccine) 0.5 ml SUBCUT .ONCE ONE Stop: 05/16/18 18:59 Meperidine HCl (Demerol) 12.5 mg IVPUSH ONETIME PRN PRN Reason: Shivering Ondansetron HCl (Zofran Odt) 4 mg PO Q4H PRN PRN Reason: Nausea/Vomiting Ondansetron HCl (Zofran) 4 mg IVPUSH Q4H PRN PRN Reason: Nausea/Vomiting Ondansetron HCl (Zofran) 4 mg IVPUSH ONETIME PRN PRN Reason: Nausea/Vomiting Pantoprazole Sodium (Protonix) 40 mg PO DAILY DYAN Last Admin: 05/16/18 12:04 Dose: Not Given Sodium Chloride (Saline Flush) 10 ml FLUSH ASDIRECTED PRN PRN Reason: Keep Vein Open - Exam General: Reports: Alert, Oriented HEENT: Reports: EOMI, Mucous Membr. Moist/[place] Neck: Reports: Supple Lungs: Reports: Clear to Auscultation, Normal Respiratory Effort Cardiovascular: Reports: Regular Rate, Regular Rhythm GI/Abdominal Exam: Normal Bowel Sounds, Soft (Female) Exam: Normal External Exam, Other (Fundus firm, 1 finger below U.) Rectal (Female) Exam: Deferred Back Exam: Reports: Normal Inspection, Other (No bruising or tenderness at epidural site) Extremities: Normal Inspection, Non-Tender, No Pedal Edema Skin: Reports: Warm, Dry, Intact Neurological: Reports: No New Focal Deficit Psy/Mental Status: Reports: Alert, Normal Affect, Normal Mood
== END 2018-05-17 20:00 | disposition home or self-care (01) | DRG 560 ==
LOC: JD.OB 07:04 → OBSVTOIN 18:57 → JD.OB 18:58
PROVIDERS: ADMIT Family Medicine; ATTEND Family Medicine
PROC: 10E0XZZ Delivery of Products of Conception, External Approach (ICD-10-PCS; principal; 2018-05-16)
PROC: 10907ZC Drainage of Amniotic Fluid, Therapeutic from Products of Conception, Via Natural or Artificial Opening (ICD-10-PCS; 2018-05-16)
PROC: 3E0S3GC Introduction of Other Therapeutic Substance into Epidural Space, Percutaneous Approach (ICD-10-PCS; 2018-05-16)
DX: O26.893 Other specified pregnancy related conditions, third trimester (principal); R03.0 Elevated blood-pressure reading, without diagnosis of hypertension; Z3A.40 40 weeks gestation of pregnancy; Z37.0 Single live birth; K21.9 Gastro-esophageal reflux disease without esophagitis; Z79.899 Other long term (current) drug therapy; Z87.59 Personal history of other complications of pregnancy, childbirth and the puerperium
CPT/HCPCS: 36415; 51702; 59025; 59409; 81003; 85027; 86592; 86850; 86900; 86901; A9270-GY; J1200; J2590; J3010; J7120